=== PATIENT | male | born 1995 | race Caucasian/White ===

== ENCOUNTER 2021-09-07 20:44 | Emergency (ER) | payer OTHER ==
[~2021-09-07] VITALS: Ht 170.2 cm; Wt 106.6 kg
[2021-09-07 21:10] VITALS: BP 107/75
--- NOTE | 2021-09-07 21:10 | NUR ---
BIBS FROM HOME FOR C/O R SIDED ABD PAIN, N/V/D X 3 DAYS. PT A/OX4. TOLERATING R/A WELL WITH NO SOB. CONNECTED PT TO POX AND MONITOR.
--- NOTE | 2021-09-07 21:27 | NUR ---
URINE COLLECTED AND SENT TO LAB
--- NOTE | 2021-09-07 22:13 | NUR ---
DR. LAW STEVENS AT PT'S BEDSIDE
[2021-09-07] MEDS ORDERED: ONDANSETRON 4 MG TAB.RAPDIS ONE (22:21)
[2021-09-07] MEDS ORDERED: ONDANSETRON 4 MG TAB.RAPDIS SL ONE (22:30)
[2021-09-07] MEDS ORDERED: LOPE2CAP40 PO (22:41)
[2021-09-07] MEDS ORDERED: DICY20TA11 PO (22:41)
[2021-09-07] MEDS ORDERED: ONDA4TAB11 PO (22:41)
--- NOTE | 2021-09-07 22:56 | NUR ---
Patient discharged to home in stable condition. RX Written and verbal after care instructions given. Patient verbalizes understanding of instruction. PT ambulatory with a steady gait
== END 2021-09-07 22:57 | disposition home or self-care (01) ==
LOC: ER 20:48
DX: A05.9 Bacterial foodborne intoxication, unspecified (principal); Z79.899 Other long term (current) drug therapy
CPT/HCPCS: 99283; Q0162